=== PATIENT | male | born 1955 | race Caucasian/White ===

== ENCOUNTER → 2016-12-28 | Outpatient (CLI) | payer OTHER | LOC: BRMIMAGING 11:36 | PROVIDERS: ATTEND Internal Medicine | DX: M79.651 Pain in right thigh (principal) | CPT/HCPCS: 93971-PO ==

== ENCOUNTER 2017-01-06 16:27 | Emergency (ER) | payer OTHER ==
[2017-01-06] MEDS ORDERED: fentaNYL 100 MCG/2 ML INJ IVP ONE (16:33)
[2017-01-06] MEDS ORDERED: NS 1,000 ML IV ONE (16:33)
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
[2017-01-06] MEDS ORDERED: LIDOCAINE 2% JELLY 20 ML (UROJECT) ONE (16:38)
[2017-01-06 16:48] VITALS: O2SAT 97
[2017-01-06 17:10] LABS: PLATELET COUNT 207 10^3/uL (150-400)
[2017-01-06 17:20] LABS: INR 0.98 (0.83-1.16); PROTIME(PATIENT) 12.9 SEC (12.0-15.0)
[2017-01-06] MEDS ORDERED: TDAP ADULT 0.5 ML INJ (BOOSTRIX) IM ONE (18:13)
[2017-01-06] MEDS ORDERED: CEPHALEXIN 500MG PREPACK#4 BTL TAKEHOME ONE (18:39)
[2017-01-06] MEDS ORDERED: HYDROCOD/APAP 5/325 PREPACK#6 BTL TAKEHOME ONE (18:40)
[2017-01-06 18:50] VITALS: BP 138/59; PULSE 66; RESP 18; TEMP 98.4
== END 2017-01-06 18:49 | disposition home or self-care (01) ==
LOC: EDUNIT#
DX: S00.03XA Contusion of scalp, initial encounter (principal); S00.01XA Abrasion of scalp, initial encounter; I25.10 Atherosclerotic heart disease of native coronary artery without angina pectoris; E86.9 Volume depletion, unspecified; Z95.5 Presence of coronary angioplasty implant and graft; V18.0XXA Pedal cycle driver injured in noncollision transport accident in nontraffic accident, initial encounter; Y92.410 Unspecified street and highway as the place of occurrence of the external cause; Y99.8 Other external cause status; Y93.55 Activity, bike riding
CPT/HCPCS: 96374; J3010